=== PATIENT | female | born 1995 | race Caucasian/White ===

== ENCOUNTER 2021-11-25 20:29 | Emergency (ER) | payer OTHER, SELFPAY ==
--- NOTE | ~2021-11-25 | US_ITS ---
EXAMINATION: US OBSTETRICAL ULTRASOUND CLINICAL INFORMATION: Vaginal bleeding. COMPARISON: None. LMP: 09/10/2021. Gestational age by maternal dates is 10 weeks, 6 days. Estimated date of delivery by maternal dates is 06/17/2022. TECHNIQUE: Multiple 2-D grayscale and Doppler transabdominal ultrasound images of the pelvis were obtained. FINDINGS: There is a single intrauterine gestational sac with fetus and cardiac activity. The gestational sac is seen positioned inferiorly within the mid to inferior uterine body. Subchorionic anechoic fluid with sediment level is seen towards the fundus measuring approximately 4.9 x 3.6 x 3.9 cm. Color Doppler showed no significant internal vascular flow. The cervical canal is minimally dilated measuring up to 0.5 cm without focal abnormality. The urinary bladder is mildly distended without focal abnormality. HR: 158 beats per minute. CRL (crown rump length): 4.73 cm (11 weeks, 4 days +/- 4 days). DAI (estimated date of delivery): 06/12/2022 +/- 4 days. MATERNAL ADNEXA: Not confidently identified. No overt adnexal abnormality. There is no significant maternal adnexal mass. No maternal pelvic ascites. US/US OB <= 14 wk fetus add gest IMPRESSION: 1. Single, viable intrauterine gestation of approximately 11 weeks, 4 days via crown-rump length however, there is concern for impending demise with prominent subchorionic hemorrhage as detailed above, inferior positioning/irregular appearance of the gestational sac as well as minimal cervical canal dilatation. Continued short-term monitoring with physical exam is recommended. Repeat pelvic ultrasound is recommended as clinically indicated to assess for change.
[2021-11-25 20:31] VITALS: BP 119/74; PULSE 120; RESP 16; TEMP 36.5; O2SAT 100; BMI 25.9
[2021-11-25 20:57] LABS: MANUAL DIFF FLAG NO
[2021-11-25 21:04] LABS: Basophils Absolute Auto 0.1 X10*3/uL (0.0-0.2); Basophils Percent Auto 0.4 % (0-2); Eosinophils Absolute Auto 0.4 X10*3/uL (0.0-0.4); Eosinophils Percent Auto 3.2 % (0-4); Hematocrit 39.6 % (37.0-47.0); Hemoglobin 13.6 g/dl (12.0-16.0); Imm Gran Abs Auto 0.04 X10*3/uL (0.00-0.03); Imm Gran Pct Auto 0.3 % (0.0-0.4); Lymphocytes Absolute Auto 4.3 X10*3/uL (1.2-4.9); Lymphocytes Percent Auto 30.9 % (20-40); Mean Corpuscular HGB Conc 34.3 g/dl (31.0-35.0); Mean Corpuscular Hemoglobin 31.4 pg (27.0-33.0); Mean Corpuscular Volume 91.5 fL (80.0-98.0); Mean Platelet Volume 10.4 fL (9.4-12.3); Monocytes Absolute Auto 0.9 X10*3/uL (0.1-1.2); Monocytes Percent Auto 6.7 % (2-11); Neutrophils Absolute Auto 8.2 x10*3/uL (2.0-8.3); Neutrophils Percent Auto 58.5 % (45-73); Platelet Count 240 X10*3/uL (160-400); Red Blood Count 4.33 X10*6/uL (4.20-5.50); Red Cell Distribution Width 12.4 % (11.0-16.0)
--- NOTE | 2021-11-25 21:05 | ED.PREGNANCY ---
HPI - General Chief complaint: Vaginal Bleeding Stated complaint: , vaginal bleeding Time Seen by Provider: 11/25/21 20:55 Source: patient Mode of arrival: ambulatory Limitations: no limitations History of Present Illness HPI Narrative: Patient is a at 10 weeks 6 days of gestational age. Patient comes to emergency room complaining of vaginal bleeding. Patient states that 2 days ago she had an OB Gyne visit at [facility], she was told that her was developing within normal limits. Today, patient states that she had a gush of blood, states patient was wearing a panty liner and it soak it. This only happened 1 time. Patient states that she has not had any vaginal fluid leakage, no abdominal cramping. No recent illnesses Related Data Allergies Allergy/AdvReac Type Severity Reaction Status Date / Time No Known Allergies Allergy Verified 11/25/21 20:31 Review of Systems Review of Systems: Constitutional : No Weight loss, No Fever, No Chills, No Night Sweats, No Fatigue, No Malaise ENT/Mouth : No Hearing loss, No Ear Pain, No Nasal Congestion, No Sinus Pain, No Hoarseness, No sore throat, No Rhinorrhea, No Swallowing Difficulty Eyes: No Eye Pain, No Swelling, No Redness, No Foreign Body, No Discharge, No Vision Changes Cardiovascular : No Chest Pain, No SOB, No Dyspnea on Exertion, No Orthopnea, No Edema, No Palpitations Respiratory : No Cough, No Sputum, No Wheezing, No Smoke Exposure, No Dyspnea Gastrointestinal : No Nausea, No Vomiting, No Diarrhea, No Constipation, No abdominal Pain, No Hematochezia, No Melena Genitourinary :No Dysuria, No Urinary Frequency, No Hematuria, No Urinary Incontinence, No Urgency, No Flank Pain, No Urinary Flow Changes, No Hesitancy, complaining of a vaginal bleeding gush Musculoskeletal : No joint pain, No Myalgias, No Joint Swelling Skin : No Skin Lesions, No rash Neuro : No Weakness, No Numbness, No Paresthesias, No Loss of Consciousness, No Dizziness, No Headache Psych : No Anxiety/Panic, No Depression, No SI/HI/AH/VH, No Social Issues, Heme/Lymph: No Bruising, No Bleeding,No Lymphadenopathy Endocrine : No Polyuria, No Polydipsia, No Temperature Intolerance PMFSH Social History Social History Advance Directives: No Advance Directives Information Provided: No Patient : Yes Physical Exam Vital Signs: Vital Signs: Last Vital Signs Temp 98.2 F 11/25/21 22:00 Pulse 107 H 11/25/21 22:00 Resp 18 11/25/21 22:00 BP 103/50 L 11/25/21 22:00 Pulse Ox 99 11/25/21 22:00 BMI result Body Mass Index 25.9 Const: Other: Appearance: Alert. Oriented X3. No acute distress. Eyes: Pupils equal, round and reactive to light. ENT: Pharynx normal. Neck: Normal inspection. Neck supple. No lymph nodes noted. No crepitus CVS: Normal heart rate and rhythm. Pulses normal. Normal S1 and S2 Respiratory: No respiratory distress. Breath sounds normal. No Wheezing. No rales Abdomen: Soft and nontender. No rigidity. No distention. Cervical: The cervix is minimally dilated, passing string like tissue material and scant/ small amount of blood Skin: Skin warm and dry. Normal skin color. Normal skin turgor. Extremities: No lower extremity edema. No Lacerations. No Rash Neuro: Oriented X 3. No motor deficit. No sensory deficit. Moving all extermities. No slurred speech. Course Course Course Narrative: I discussed the ultrasound findings with the patient. At this time, the fetus still has a heart rate. However, given the physical exam and ultrasound findings, this is a threatened that will likely end up in demise and spontaneous . Patient instructed to follow-up with her OBGYN tomorrow, she was provided with a copy of the ultrasound report Patient is B positive, she does not require RhoGAM MDM - OB/Uterine Contractions Lab Data Result diagrams: 11/25/21 20:41 11/25/21 20:41 Labs: Lab Results 11/25/21 11/25/21 11/25/21 Range/Units 20:41 20:41 20:41 WBC 14.0 H (4.8-10.8) X10*3/uL RBC 4.33 (4.20-5.50) X10*6/uL Hgb 13.6 (12.0-16.0) g/dl Hct 39.6 (37.0-47.0) % MCV 91.5 (80.0-98.0) fL MCH 31.4 (27.0-33.0) pg MCHC 34.3 (31.0-35.0) g/dl RDW 12.4 (11.0-16.0) % Plt Count 240 (160-400) X10*3/uL MPV 10.4 (9.4-12.3) fL Immature Gran % (Auto) 0.3 (0.0-0.4) % Neut % (Auto) 58.5 (45-73) % Lymph % (Auto) 30.9 (20-40) % [facility] % (Auto) 6.7 (2-11) % Eos % (Auto) 3.2 (0-4) % Baso % (Auto) 0.4 (0-2) % Lymph # (Auto) 4.3 (1.2-4.9) X10*3/uL [facility] # (Auto) 0.9 (0.1-1.2) X10*3/uL Eos # (Auto) 0.4 (0.0-0.4) X10*3/uL Baso # (Auto) 0.1 (0.0-0.2) X10*3/uL Abs Immat Gran (auto) 0.04 H (0.00-0.03) X10*3/uL Absolute Neuts (auto) 8.2 (2.0-8.3) x10*3/uL Absolute Nucleated RBC 0.000 (0.0-0.012) X10*3/uL Nucleated RBC % (auto) 0.0 (0.0-0.2) /100WBC Sodium 136 (135-145) mmol/L Potassium 3.8 (3.3-5.1) mmol/L Chloride 105 (96-108) mmol/L Carbon Dioxide 21 L (22-29) mmol/L Anion Gap 14 (12-20) BUN 11 (9-16) mg/dL Creatinine 0.73 (0.5-1.4) mg/dL Estim Creat Clear Calc 96.9 Estimated GFR > 60 Random Glucose 97 (60-115) mg/dL Calcium 9.6 (8.4-10.2) mg/dL Total Bilirubin 0.2 (0.0-1.0) mg/dL AST 17 (5-31) U/L ALT 11 (0-31) U/L Alkaline Phosphatase 73 (39-117) U/L Total Protein 7.0 (6.5-8.0) g/dL Albumin 4.1 (3.5-5.0) g/dL Beta HCG, Quant 88075 mIU/mL Urine Color Urine Appearance Urine pH (5.0-8.0) Ur Specific Lenore (1.005-1.025) Urine Protein (NEG-TRACE) MG/DL Urine Glucose (UA) (NEG) MG/DL Urine Ketones (NEG) MG/DL Urine Blood (NEG) Urine Nitrite (NEG) Ur Leukocyte Esterase (NEG) Urine RBC (0) /HPF Urine WBC (0-4) /HPF Ur Squamous Epith Cells /LPF Amorphous Sediment /LPF Urine Bacteria /LPF Urine Test (NEGATIVE) Blood Type B Positive 11/25/21 11/25/21 Range/Units 20:48 20:48 WBC (4.8-10.8) X10*3/uL RBC (4.20-5.50) X10*6/uL Hgb (12.0-16.0) g/dl Hct (37.0-47.0) % MCV (80.0-98.0) fL MCH (27.0-33.0) pg MCHC (31.0-35.0) g/dl RDW (11.0-16.0) % Plt Count (160-400) X10*3/uL MPV (9.4-12.3) fL Immature Gran % (Auto) (0.0-0.4) % Neut % (Auto) (45-73) % Lymph % (Auto) (20-40) % [facility] % (Auto) (2-11) % Eos % (Auto) (0-4) % Baso % (Auto) (0-2) % Lymph # (Auto) (1.2-4.9) X10*3/uL [facility] # (Auto) (0.1-1.2) X10*3/uL Eos # (Auto) (0.0-0.4) X10*3/uL Baso # (Auto) (0.0-0.2) X10*3/uL Abs Immat Gran (auto) (0.00-0.03) X10*3/uL Absolute Neuts (auto) (2.0-8.3) x10*3/uL Absolute Nucleated RBC (0.0-0.012) X10*3/uL Nucleated RBC % (auto) (0.0-0.2) /100WBC Sodium (135-145) mmol/L Potassium (3.3-5.1) mmol/L Chloride (96-108) mmol/L Carbon Dioxide (22-29) mmol/L Anion Gap (12-20) BUN (9-16) mg/dL Creatinine (0.5-1.4) mg/dL Estim Creat Clear Calc Estimated GFR Random Glucose (60-115) mg/dL Calcium (8.4-10.2) mg/dL Total Bilirubin (0.0-1.0) mg/dL AST (5-31) U/L ALT (0-31) U/L Alkaline Phosphatase (39-117) U/L Total Protein (6.5-8.0) g/dL Albumin (3.5-5.0) g/dL Beta HCG, Quant mIU/mL Urine Color YELLOW Urine Appearance CLEAR Urine pH 7.0 (5.0-8.0) Ur Specific Lenore 1.020 (1.005-1.025) Urine Protein NEG (NEG-TRACE) MG/DL Urine Glucose (UA) NEG (NEG) MG/DL Urine Ketones NEG (NEG) MG/DL Urine Blood 3+ H (NEG) Urine Nitrite NEG (NEG) Ur Leukocyte Esterase NEG (NEG) Urine RBC 30-49 H (0) /HPF Urine WBC 1-4 (0-4) /HPF Ur Squamous Epith Cells 1+ /LPF Amorphous Sediment 2+ /LPF Urine Bacteria TRACE /LPF Urine Test POSITIVE H (NEGATIVE) Blood Type Discharge Plan Discharge Clinical Impression: Threatened Patient Disposition: Home, Self-Care Instructions: Threatened Miscarriage (ED) Additional Instructions: You need pelvic rest, no sexual activity. Do not insert tampons. If you have any significant abdominal pain, heavy vaginal bleeding, fever or chills, please return immediately to the emergency room. Otherwise, please follow-up with your OBGYN tomorrow. If you have any worsening or new symptoms, please return to the emergency room or call 911.
[2021-11-25 21:13] LABS: Alanine Aminotransferase 11 U/L (0-31); Albumin Level 4.1 g/dL (3.5-5.0); Alkaline Phosphatase 73 U/L (39-117); Anion Gap 14 (12-20); Aspartate Amino Transferase 17 U/L (5-31); Bilirubin Total 0.2 mg/dL (0.0-1.0); Blood Urea Nitrogen 11 mg/dL (9-16); Calcium 9.6 mg/dL (8.4-10.2); Carbon Dioxide 21 mmol/L (22-29); Chloride 105 mmol/L (96-108); Creatinine Clr Calc Pharmacy 96.9; Estimated Glomerular Filt Rate > 60; Glucose Random 97 mg/dL (60-115); Potassium 3.8 mmol/L (3.3-5.1); Sodium 136 mmol/L (135-145)
[2021-11-25 21:25] LABS: Appearance Urine CLEAR; Color Urine YELLOW; Glucose Urine UA NEG (NEG); Leukocyte Esterase Urine NEG (NEG); Nitrite Urine NEG (NEG); UACC Culture Trigger NO; Urine Blood 3+ (NEG); Urine Ketones NEG (NEG); Urine Protein NEG (NEG-TRACE)
[2021-11-25 21:33] LABS: UPreg QC Valid YES; Urine Pregnancy POSITIVE (NEGATIVE)
--- NOTE | 2021-11-25 21:51 | PC.NURSE ---
pt to u/s in stretcher.
[2021-11-25 22:00] VITALS: BP 103/50; PULSE 107; RESP 18; TEMP 36.8; O2SAT 99
[2021-11-25 22:33] LABS: Bacteria Urine TRACE /LPF; RBC Urine 30-49 /HPF (0); Squamous Epithelial Cell Urine 1+ /LPF
[2021-11-25 22:34] LABS: Amorphous Sediment Urine 2+ /LPF
== END 2021-11-25 23:16 | disposition home or self-care (01) ==
PROVIDERS: Emergency Provider Emergency Medicine
DX: O20.0 Threatened abortion (principal); Z3A.11 11 weeks gestation of pregnancy
CPT/HCPCS: 36415; 76801; 76802; 80053; 81001; 81003; 81025; 84702; 85025; 86900; 86901; 99283; 99284

== ENCOUNTER 2023-02-28 15:11 | Outpatient (REF) | payer MEDICAID, SELFPAY ==
--- NOTE | ~2023-02-28 | XR_ITS ---
EXAMINATION: XR CHEST CLINICAL INFORMATION: Preop COMPARISON: Previous chest x-ray from 2016 TECHNIQUE: 2 views of the chest were obtained. FINDINGS: No significant abnormality is noted involving the heart, lungs, mediastinum, bony thorax or soft tissues. XR/XR chest 2V IMPRESSION: Unremarkable examination.
== END 2023-02-28 15:12 | disposition home or self-care (01) ==
LOC: HO.XRAY 15:11
PROVIDERS: Absent Provider Family Medicine; PCP Family Medicine; Visit Provider Internal Medicine
DX: Z01.818 Encounter for other preprocedural examination (principal)
CPT/HCPCS: 71046

== ENCOUNTER 2025-09-02 18:08 | Outpatient (REF) | payer MEDICAID, SELFPAY ==
--- OUTSIDE RECORDS SUMMARY | 2025-09-02 13:00 | XMS_ITS | Encounter Summary ---
Author Organization [employer] Address [address] [place] [address] 7 [place] [address] Care Team Providers Care Sliver Lap Tender Name Role Phone Nohemy Elliott MD Primary Care Provider [phone] Reason for Visit * Reason Comments Blister Encounter Details Date Type Department Care Team ([facility] st Contact Info) Description 09/02/2025 1:00 PM EST Office Visit [facility] [address] [place] [address] [phone] Brit Burton MD [address] [place] [address] [phone] Cold sore (Primary Dx); Skin lesion Social History Tobacco Use Types Packs/Day Years Used Date Smoking Tobacco: Never Smokeless Tobacco: Never Tobacco Cessation:Counseling Given: Not Answered Alcohol Use Standard Drinks/Week Comments Not Currently 0 (1 standard drink = 0.6 oz pur e alcohol) Depression Answer Date Recorded Patient Health Questionnaire-9 Score 0 02/28/2023 Housing Stability Answer Date Recorded What is your housing situation today? I have chang pisano 08/05/[address] you li ve. Do you have problems with any of the following? None of the above 08/05/2023 Food Insecurity Answer Date Recorded Within the past 12 months, y ou worried that your food would run out before you got money to buy more: Never True 08/05/2023 Within the past 12 months,th e food you bought just didn't last and you didn't have enough money to get more: Never True 02/2023 Transportation Answer Date Recorded In the past 12 months, has l ack of transportation kept you from medical appts, meetings, work or from getting things needed for daily living? No 08/05/2023 Utilities Answer Date Recorded In the past 12 months, has t he electric, gas, oil or water company threatened to shut off services in your home? No 08/05/2023 Depression Answer Date Recorded Patient Health Questionnaire-2 Score 0 02/28/2023 Comments No Sex and Gender Information Value Date Recorded Sex Assigned at Female 07/30/2022 10:23 AM EDT Legal Sex Female 10:23 AM EDT Gender Identity Female 07/30/2022 10:23 AM EDT Sexual Orientation Straight 07/30/2022 10 :23 AM EDT documented as of this encounter Last Filed Vital Signs Vital Sign Reading Time Taken Comments Blood Pressure 114/61 09/02/2025 12:56 PM EST Pulse 82 09/02/2025 12:56 PM EST Temperature 36.9 C (98.5 F) 09/02/2025 12:56 PM EST Respiratory Rate 16 09/02/2025 12:56 PM EST Oxygen Saturation 99% 09/02/2025 12:56 PM EST Inhaled Oxygen Concentration - - Weight 62.6 kg (138 lb) 09/02/2025 12:56 PM EST Height 155 cm (5' 1.02 ) 09/02/2025 12:56 PM EST Body Mass Index 26.06 09/02/2025 12:56 PM EST documented in this encounter Progress Notes * Brit Burton MD - 09/02/2025 1:00 PM EST Subjective Joy Christian Bennett, age 30 years Lip lesion - Noted a nonpainful ulcer on right lateral lip approximately 4 weeks prior to visit - Lesion has not healed over 4 weeks - Used triamcinolone cream for eczema on the lesion without improvement - Began using Abreva 2 days prior to visit - Lesion remains nonpainful - No prior history of similar symptoms - Son has a history of cold sores - Denies recent upper respiratory infections - Denies vaginal lesions Objective Blood pressure 114/61, pulse 82, temperature 98.5 ??F (36.9 ??C), temperature source Temporal, resp. rate 16, height 5' 1.02 (1.55 m), weight 138 lb (62.6 kg), SpO2 99%. - HEENT: One cm erythematous patch with healing vesicles on the right lateral lip. No induration ordrainage. Cold sore: - Lip lesion is likely a cold sore and is healing. - Prescribed acyclovir for use at the first sign of future outbreaks. Advised to continue Abreva for one week. Recommended return for evaluation if not improved in two weeks. Culture obtained; explained that a positive result will be helpful, but a negative result may not be informative due to lesion duration. This note was drafted using Ambient (AI) technology. The patient/patient's guardian has been informed and has consented to the use of this technology: Yes documented in this encounter Plan of Treatment Scheduled Orders Name Type Priority Associated Diagnoses Orde r Schedule Herpes Simplex Virus Culture with Reflex Typing Microbiology Routine Cold sore Skin lesion Ordered: 09/02/2025 documented as of this encounter Visit Diagnoses Diagnosis Cold sore- Primary Herpes simplex without mention of complication Skin lesion Unspecified disorder of skin and subcutaneous tissue documented in this encounter Additional Health Concerns Assessment Noted Time PHQ-9 Depression Total Score: 0 02/29/20 23 1:30 PM EDT documented as of this encounter Care Teams Sliver Lap Tender Relationship Specialty Start Date End Date Nohemy Elliott MD [address] [place] [id number] PCP - General Family Medicine 04/09/22 documented as of this encounter
--- OUTSIDE RECORDS SUMMARY | 2025-09-02 22:16 | XMS_ITS | Encounter Summary ---
Author Organization [employer] Address [address] [place] [address] 7 h Floor [place] [id number] Care Team Providers Care Belt Builder Name Role Phone Nohemy Elliott MD Primary Care Provider [phone] Encounter Details Date Type Department Care Team (Latest Contact Info) Description 11/20/2018 Abstract [facility] CONVERSIONS Dental, Provider, DDS Social History Tobacco Use Types Packs/Day Years Used Date Smoking Tobacco: Never Assessed Comments Unknown Sex and Gender Information Value Date Recorded Sex Assigned at Female 07/30/2022 10:23 AM EDT Legal Sex Female 10:23 AM EDT Gender Identity Female 07/30/2022 10:23 AM EDT Sexual Orientation Straight 07/30/2022 10 :23 AM EDT documented as of this encounter Plan of Treatment Not on file documented as of this encounter Visit Diagnoses Not on filedocumented in this encounter Care Teams Belt Builder Relationship Specialty Start Date End Date Nohemy Elliott MD [address] [place] [id number] PCP - General Family Medicine 04/09/22 documented as of this encounter
--- OUTSIDE RECORDS SUMMARY | 2025-09-02 22:16 | XMS_ITS | Encounter Summary ---
Author Organization [employer] Address [address] [facility] [address] [place] [address] Care Team Providers Care Core Mounter Name Role Phone Nohemy Elliott MD Primary Care Provider [phone] Encounter Details Date Type Department Care Team (Latest Contact Info) Description 09/02/2025 Travel Social History Tobacco Use Types Packs/Day Years Used Date Smoking Tobacco: Never Smokeless Tobacco: Never Alcohol Use Standard Drinks/Week Comments Not Currently 0 (1 standard drink = 0.6 oz pur e alcohol) Depression Answer Date Recorded Patient Health Questionnaire-9 Score 0 02/28/2023 Housing Stability Answer Date Recorded What is your housing situation today? I have changmariano pisano 08/05/[address] you [...] Diagnoses Not on filedocumented in this encounter Additional Health Concerns Assessment Noted Time PHQ-9 Depression Total Score: 0 02/29/20 23 1:30 PM EDT documented as of this encounter Care Teams Core Mounter Relationship Specialty Start Date End Date Nohemy Elliott MD [address] [place] [id number] PCP - General Family Medicine 04/09/22 documented as of this encounter
--- OUTSIDE RECORDS SUMMARY | 2025-09-02 22:16 | XMS_ITS | Encounter Summary ---
Author Organization [employer] Address [address] [facility] [address] [place] [address] Care Team Providers Care Forest Economics Professor Name Role Phone Nohemy Elliott MD Primary Care Provider [phone] Reason for Visit * Reason Onset Date Comments Medication Question 08/26/2024 Encounter Details Date Type Department Care Team ([facility] st Contact Info) Description 08/26/2024 Telephone [facility] MEDICINE [address] [place] [address] Nohemy Elliott MD [address] [place] [address] Medication Question Social History Tobacco Use Types Packs/Day Years [...] Patient Health Questionnaire-2 Score 0 02/28/2023 Comments Unknown Sex and Gender Information Value Date Recorded Sex Assigned at Female 07/30/2022 10:23 AM EDT Legal Sex Female 10:23 AM EDT Gender Identity Female 07/30/2022 10:23 AM EDT Sexual Orientation Straight 07/30/2022 10 :23 AM EDT documented as of this encounter Miscellaneous Notes * Telephone Encounter - Lawrence Abhijeet - 08/26/2024 9:07 AM EST Tc from pt calling in regards to triamcinolone (Kenalog) 0.5 % cream stating pharmacy informed her she would need providers permission to be able to fill script. documented in this encounter Plan of Treatment Not on file documented as of this encounter Visit Diagnoses Not on filedocumented in this encounter Additional Health Concerns Assessment Noted Time PHQ-9 Depression Total Score: 0 02/29/20 23 1:30 PM EDT documented as of this encounter Care Teams Forest Economics Professor Relationship Specialty Start Date End Date Nohemy Elliott MD [address] [place] [address] PCP - General Family Medicine 04/09/22 documented as of this encounter
--- OUTSIDE RECORDS SUMMARY | 2025-09-02 22:16 | XMS_ITS | Encounter Summary ---
Author Organization [employer] Address [address] [facility] [address] [place] [address] Care Team Providers Care Sal[employer] Officer Name Role Phone Nohemy Elliott MD Primary Care Provider [phone] Reason for Visit * Reason Comments Med Refill Encounter Details Date Type Department Care Team ([facility] st Contact Info) Description 01/22/2025 Refill [facility] [address] [place] [address] Nohemy Elliott MD [address] [place], [place] [phone] Social History Tobacco Use Types Packs/Day Years [...] documented as of this encounter Care Teams Sal[employer] Officer Relationship Specialty Start Date End Date Nohemy Elliott MD [address] [place] [address] PCP - General Family Medicine 04/09/22 documented as of this encounter
--- OUTSIDE RECORDS SUMMARY | 2025-09-02 22:16 | XMS_ITS | Encounter Summary ---
Author Organization [employer] Address [address] [place] [address] 7 h Floor [place] [phone] Care Team Providers Care Petroleum Supply Specialist Name Role Phone Nohemy Elliott MD Primary Care Provider [phone] Encounter Details Date Type Department Care Team (Latest Contact Info) Description 01/01/2022 Abstract [facility] CONVERSIONS Dental, Provider, DDS Social History Tobacco [...] on filedocumented in this encounter Care Teams Petroleum Supply Specialist Relationship Specialty Start Date End Date Nohemy Elliott MD [address] [place] [id number] PCP - General Family Medicine 04/09/22 documented as of this encounter
--- OUTSIDE RECORDS SUMMARY | 2025-09-02 22:16 | XMS_ITS | Encounter Summary ---
Author Organization [employer] Address [address] [facility] [address] [place] [address] Care Team Providers Care Data Report Analyst Name Role Phone Nohemy Elliott MD Primary Care Provider [phone] Encounter Details Date Type Department Care Team ([facility] st Contact Info) Description 08/18/2025 Orders Only [facility] [address] [place], [place] [phone] VasquezRuss Becerra MD [address] [place] [address] Social History Tobacco Use Types Packs/Day Years [...] documented as of this encounter Care Teams Data Report Analyst Relationship Specialty Start Date End Date Nohemy Elliott MD [address] [place] [address] PCP - General Family Medicine 04/09/22 documented as of this encounter
--- OUTSIDE RECORDS SUMMARY | 2025-09-02 22:16 | XMS_ITS | Clinical Summary ---
Author Organization [employer] Address [address] [place] [address] 7 [place] [address] Care Team Providers Care Glass Bulb Silverer Name Role Phone Nohemy Elliott MD Primary Care Provider [phone] Allergies No known active allergies Medications Dxkuceki-Qki-Z A ([facility] Gummy) 0.4 MG chewable tablet take 1 tablet PO qdaily Active Emollient (CeraVe Moisturizing) cream apply daily to all skin for eczema 08/16/20 22 028 Active acyclovir (Zovirax) 800 MG tabletIndicati ons:Herpes Simplex Infection Take 3 tabs a day for 2 days 6 tablet 1 09/02/20 25 Active triamcinolone (Kenalog) 0.5 % cream Apply topically 2 times daily. APPLY BY TOPICAL ROUTE 2 TIMES EVERY DAY A THIN LAYER TO THE AFFECTED AREA(S) OF FACE AND ARMS 30 g 09/02/20 25 Active triamcinolone (Kenalog) 0.5 % cream Apply topically 2 times daily. APPLY BY TOPICAL ROUTE 2 TIMES EVERY DAY A THIN LAYER TO THE AFFECTED AREA(S) OF FACE AND ARMS 30 g 06/23/20 25 025 Discontinued(Re order (will not trigger notification to Pharmacy)) triamcinolone (Kenalog) 0.5 % cream Apply topically 2 times daily. APPLY BY TOPICAL ROUTE 2 TIMES EVERY DAY A THIN LAYER TO THE AFFECTED AREA(S) OF FACE AND ARMS 30 g 08/18/20 25 025 Discontinued(Re order (will not trigger notification to Pharmacy)) Active Problems No known active problems Encounters Date Type Department Care Team Description 09/02/2025 1:00 PM EST Office Visit [facility] [address] [place] [address] Brit Burton MD Cold sore (Primary Dx); Skin lesion 09/02/2025 Travel 08/18/2025 Orders Only [facility] PEDS [address] [place] [address] Russ Guevara MD 08/18/2025 Telephone [facility] MEDICINE [address] [place], [place] [phone] Nohemy Elliott MD Med Refill 06/23/2025 Orders Only [facility] [address] [place], [place] [phone] Russ Guevara MD 06/23/2025 Orders Only [facility] [address] [place], [place] [phone] Russ Guevara MD from Last 3 Months Family History Medical History Relation Name Comments Hypertension Father Lupus Maternal Grandmother Relation Name Status Comments Father Maternal Grandmother Social History Tobacco Use Types Packs/Day Years [...] Orientation Straight 07/30/2022 10 :23 AM EDT Last Filed Vital Signs Vital Sign Reading [...] Mass Index 26.06 09/02/2025 12:56 PM EST Plan of Treatment Health Maintenance Due Date Last Done Comments IPV Vaccines (4 of 4 - 4-dose series) 1997 11/08/1994, 1993, 1993 Alcohol/Substance Use Screening 2005 Family Planning (PISQ) 2008 Hepatitis C Screening 2011 DTaP/Tdap/Td Vaccines (7 - Td or Tdap) 12/20/2018 12/20/2008, 08/16/2004, 08/23/1997, Additional history exists Depression Screening 02/29/2024 02/28/2023, 02/29/20 23 SDOH Screening 02/29/2024 02/28/2023 COVID-19 Vaccine ( season) 2025 06/30/2021, 06/09/2021 Influenza Vaccine (#1) 2025 Pap Smear 07/22/2026 07/22/2023 Disability Screening 09/02/2026 09/02/2025 Tobacco Screening 09/02/2026 09/02/2025 Cervical Cancer Screening 07/22/2028 HPV/Cotest 07/22/2028 07/22/2023 Zoster Vaccines (1 of 2) 2043 RSV Patients and Patients Aged 60 years or older (1 - 1-dose 75+ series) 2068 Hepatitis B Vaccines Completed 01/04/1994, 1993, 1993 HIB Vaccines Completed 08/08/1994, 09/30, 1993, Additional history exists HPV Vaccines Completed 04/09/2008, 11/28, 10/09/2007 Meningococcal Vaccine Aged Out 12/20/2008 No kassidy idalia eligible based on patient's age to complete this topic HIV Screening Completed 03/01/2023 Hepatitis A Vaccines Aged Out No long er eligible based on patient's age to complete this topic Meningococcal B Vaccine Aged Out No l onger eligible based on patient's age to complete this topic Pneumococcal Vaccine: Pediatrics (0 to 5 Years) and At-Risk Patients (6 to 49) Years Aged Out No longer eligible based on patient's age to complete this topic RSV under 20 months Aged Out No longe r eligible based on patient's age to complete this topic Rotavirus Vaccines Aged Out No longer eligible based on patient's age to complete this topic Procedures Procedure Name Priority Date/Time Associated Diagnosis Comments PAP/HPV Routine 07/22/2023 HIV 1 RNA, QN PCR W/RFL NAZ (RTI,PI,INTEGRASE) Routine 03/01/2023 10:16 AM EDT Pre-op evaluation from Last 3 Months or Most Recently Relevant to Health Maintenance Results * Pap Smear (07/22/2023) Pap Negative for intraephithelial lesion or malignancy Negative for intraephithelial lesion or malignancy, Other HPV Undetected us Historical Provider HEALTH MAINTENANCE Final Result * HIV-1 RNA, Quantitative, Real-Time PCR with Reflex to Genotype (RTI, PI, Integrase) (03/01/2023 10:16 AM EDT) HIV 1 RNA, QN PCR NOT DETECTED copies/mL [facility]Tim mary [facility], HIV 1 RNA, QN PCR NOT DETECTED Log copies/mL [facility]/N tyra [facility], Comment: REFERENCE RANGE: NOT DETECTED copies/mL NOT DETECTED Log copies/mL This test was performed using Real-Time Polymerase Chain Reaction. Reportable range is 20 to 10,000,000 copies/mL (1.30-7.00 Log copies/mL). 03/01/2023 10:1 6 AM EDT 03/01/2023 10:17 AM EDT us Minoo Bobby MD LAB BLOOD ORDERABLES Final Result [facility] [address], [place] [address] [facility] [facility], [address] [facility] [place] [address] from Last 3 Months or Most Recently Relevant to Health Maintenance Insurance Care Teams Glass Bulb Silverer Relationship Specialty Start Date End Date Nohemy Elliott MD [address] [place] [id number] PCP - General Family Medicine 04/09/22
--- OUTSIDE RECORDS SUMMARY | 2025-09-02 22:17 | XMS_ITS | Encounter Summary ---
Author Organization [employer] Address [address] [facility] [address] [place] [address] Care Team Providers Care Fishery Biologist Name Role Phone Nohemy Elliott MD Primary Care Provider [phone] Encounter Details Date Type Department Care Team ([facility] st Contact Info) Description 04/06/2025 Orders Only [facility] MED & PEDS [address] [place], [place] [phone] VasquezRuss Becerra MD [address] [place] [address] Social History Tobacco Use Types Packs/Day Years [...] documented as of this encounter Care Teams Fishery Biologist Relationship Specialty Start Date End Date Nohemy Elliott MD [address] [place] [address] PCP - General Family Medicine 04/09/22 documented as of this encounter
--- OUTSIDE RECORDS SUMMARY | 2025-09-02 22:17 | XMS_ITS | Encounter Summary ---
Author Organization [employer] Address [address] [facility] [address] [place] [address] Care Team Providers Care Java Programming Professor Name Role Phone Nohemy Elliott MD Primary Care Provider Reason for Visit * Reason Comments Med Refill Encounter Details Date Type Department Care Team ([facility] st Contact Info) Description 10/09/2024 Refill [facility] MED[facility] [address] [place] [address] Nohemy Elliott MD [address] [place], [place] [phone] Social History Tobacco Use Types Packs/Day Years [...] documented as of this encounter Care Teams Java Programming Professor Relationship Specialty Start Date End Date Nohemy Elliott MD [address] [place] [address] PCP - General Family Medicine 04/09/22 documented as of this encounter
--- OUTSIDE RECORDS SUMMARY | 2025-09-02 22:17 | XMS_ITS | Encounter Summary ---
Author Organization [employer] Address [address] [facility] [address] [place] [address] Care Team Providers Care Cold Storage Superintendent Name Role Phone Nohemy Elliott MD Primary Care Provider [phone] Encounter Details Date Type Department Care Team ([facility] st Contact Info) Description 06/23/2025 Orders Only [facility] CH[facility] MED & PEDS [address] [place], [place] [phone] VasquezRuss Becerra MD [address] [place] [address] Social History Tobacco Use Types Packs/Day Years [...] documented as of this encounter Care Teams Cold Storage Superintendent Relationship Specialty Start Date End Date Nohemy Elliott MD [address] [place] [address] PCP - General Family Medicine 04/09/22 documented as of this encounter
--- OUTSIDE RECORDS SUMMARY | 2025-09-02 22:17 | XMS_ITS | Encounter Summary ---
Author Organization [employer] Address [address] [facility] 7 [place] [address] Care Team Providers Care Glycerine Plant Operator Name Role Phone Nohemy Elliott MD Primary Care Provider [phone] Reason for Visit * Reason Comments Med Refill Encounter Details Date Type Department Care Team ([facility] st Contact Info) Description 03/29/2025 Refill [facility] MED[facility] [address] [place] [address] Russ Guevara MD [address] [place] [address] Social History Tobacco Use Types Packs/Day Years [...] t he electric, gas, oil or water Hey, Neighbor! threatened to shut off services in your [...] documented as of this encounter Care Teams Glycerine Plant Operator Relationship Specialty Start Date End Date Nohemy Elliott MD [address] [place] [address] PCP - General Family Medicine 04/09/22 documented as of this encounter
== END 2025-09-02 18:09 | disposition home or self-care (01) ==
LOC: HO.HHCLNP 18:08
PROVIDERS: Visit Provider Family Medicine
DX: B00.1 Herpesviral vesicular dermatitis (principal); L98.9 Disorder of the skin and subcutaneous tissue, unspecified
CPT/HCPCS: 36415; 87255